=== PATIENT | female | born 1985 | race Asian ===

== ENCOUNTER 2017-03-21 16:39 | Emergency (ER) | payer BC ==
[2017-03-21 17:09] VITALS: BP 121/75
--- NOTE | 2017-03-21 17:46 | UC ---
Throat Pain/Nasal [place] HPI - HPI Summary HPI Summary: L-sided "inflamed tonsil," ST with radiation to L ear x 2 weeks. Thought it was from a bad tooth, but sx persist after tooth extraction 03/15/17. Now feels tender lump in L neck. Denies fever, nasal congestion, or trouble breathing. Has dry cough at nighttime only. - History of Current Complaint Chief Complaint: UCGeneralIllness Stated Complaint: SORE THROAT EAR PAIN Time Seen by Provider: 03/21/17 17:39 Hx Obtained From: Patient Hx Last Menstrual Period: 2 weeks ago ?: No Onset/Duration: Gradual Onset, Lasting Weeks Severity: Mild Cough: Nonproductive Associated Signs & Symptoms: Negative: Sinus Discomfort, Nasal Discharge, Fever , Vomiting, Rash - Allergies/Home Medications Allergies/Adverse Reactions: Allergies Allergy/AdvReac Type Severity Reaction Status Date / Time Cetirizine [From [employer]] Allergy Severe Swelling Verified 11/10/16 11:52 Home Medications: Home Medications Acetaminophen TAB* [Tylenol TAB*] 2 tab PO PRN 03/21/17 [History] Acetaminophen [Tylenol 8 Hour Arthritis] 1 tab PO Q8HR PRN 03/21/17 [History Confirmed 03/21/17] Levothyroxine 1 tab PO DAILY 03/21/17 [History Confirmed 03/21/17] PMH/Surg Hx/FS Hx/Imm Hx Endocrine History Of: Reports: Diabetes, Thyroid Disease - thyroid cancer Cardiovascular History Of: Denies: Cardiac Disorders, Hypertension Respiratory History Of: Denies: COPD, Asthma GI/ History Of: Denies: Ulcer - Surgical History Surgical History: Yes Surgery Procedure, Year, and Place: 2010. THYROID REMOVED 1/2 removed 2014, other half in 10/2016 - Family History Known Family History: Positive: Diabetes - Social History Alcohol Use: None Substance Use Type: None Smoking Status (MU): Never Smoked Tobacco - Immunization History Most Recent Influenza Vaccination: season Review of Systems Constitutional: Negative Skin: Negative Eyes: Negative ENT: Sore Throat, Ear Ache Respiratory: Negative Cardiovascular: Negative Gastrointestinal: Negative Genitourinary: Negative Motor: Negative Neurovascular: Negative Musculoskeletal: Negative Neurological: Negative Psychological: Negative All Other Systems Reviewed And Are Negative: Yes Physical Exam Triage Information Reviewed: Yes Appearance: Well-Appearing, No Pain Distress, Well-Nourished Vital Signs: Initial Vital Signs Temp 99.1 F 03/21/17 17:03 Pulse 62 03/21/17 17:03 Resp 16 03/21/17 17:03 BP 121/75 03/21/17 17:03 Pulse Ox 100 03/21/17 17:03 Vital Signs Reviewed: Yes Eye Exam: Normal Eyes: Positive: Conjunctiva Clear ENT: Positive: Pharyngeal erythema, TMs normal, Tonsillar swelling - trace, L> R. Negative: Nasal congestion, TM bulging, TM dull, TM red, Tonsillar exudate Dental Exam: Normal Neck: Positive: Supple, Enlarged Nodes @ - L tonsillar Respiratory Exam: Normal Respiratory: Positive: Chest non-tender, Lungs clear, Normal breath sounds, No respiratory distress, No accessory muscle use Cardiovascular Exam: Normal Cardiovascular: Positive: RRR, No Murmur Musculoskeletal Exam: Normal Neurological Exam: Normal Neurological: Positive: Alert Psychological Exam: Normal Skin Exam: Normal Throat Pain/Nasal Course/Dx - Differential Dx/Diagnosis Provider Diagnoses: tonsillitis Discharge - Discharge Plan Condition: Stable Disposition: HOME Prescriptions: Amoxicillin (*) [Amoxicillin 875 MG (*)] 875 mg PO BID #14 tab Patient Education Materials: Tonsillitis (ED) Referrals: Gerard Coughlin MD [Primary Care Provider] - Additional Instructions: Come back here if you do not see marked improvement within 5 days. I do not think you have strep because it has been going on so long.
== END 2017-03-21 17:53 | disposition home or self-care (01) ==
LOC: UCEAST 16:39
DX: J03.90 Acute tonsillitis, unspecified (principal); E11.9 Type 2 diabetes mellitus without complications; Z88.8 Allergy status to other drugs, medicaments and biological substances; Z85.850 Personal history of malignant neoplasm of thyroid
CPT/HCPCS: 99212; G0463